=== PATIENT | male | born 1990 ===

== ENCOUNTER 2022-03-13 12:56 | Day surgery (SDC) | payer BC ==
[2022-03-11 11:36] VITALS: BMI 27.8
--- NOTE | 2022-03-12 17:18 | HP ---
HISTORY AND PHYSICAL CHIEF COMPLAINT: Nasal septal deviation. HISTORY OF PRESENT ILLNESS: This patient is a pleasant 31-year-old male who was recently seen in my office complaining of having severe difficulty breathing through his nose. The patient states that his symptoms are year-round and that he has had difficulty breathing through his nose for most of his life. He has seasonal allergies and is currently getting shots. He also takes epst-[id number] Zyrtec and a prescription for Singulair for his allergies. The patient states that it is especially difficult to sleep at night because of his breathing issues. At the time that he was seen in my office, clinical examination intranasally revealed that the patient had extreme nasal septal deviation to the left with the anterior cartilage portion of the septum subluxed off of the maxillary crest. There was hypertrophy of the maxillary crest, deformity of the perpendicular plate of the ethmoid posteriorly, and finally a vomerine spur noted on the left side posteriorly. In addition, there is severe bilateral hypertrophy of the inferior turbinates. Because of these findings, it was recommended that the patient undergo a Carver septoplasty with bilateral partial resection of the inferior turbinates under general anesthesia. PAST MEDICAL HISTORY: The patient has ALLERGIES to BIAXIN. His current medications include allergy shots, Zyrtec, Singulair and albuterol. REVIEW OF SYSTEMS: The review of systems is positive with respect to the respiratory system, in that the patient is known to be an asthmatic. The remainder of the review of systems is unremarkable. Previous surgeries include cholecystectomy and extraction of wisdom teeth. PHYSICAL EXAMINATION: This patient is a 31-year-old male who is alert, cooperative and well-oriented to time and place. HEENT EXAMINATION: The patient is normocephalic. Tympanic membranes are normal. Middle ear spaces are free of any fluid or infection. Pupils are equal, round and reactive to light and accommodation. Extraocular movements are within normal limits. Intranasal examination reveals severe nasal septal deviation with deformities as described above in the history of present illness. Examination of the oropharynx: Cranial nerves 2 through 12 and the remainder of the head and neck exam are essentially unremarkable. Chest/Cardiovascular: Both lung grady are clear to percussion and auscultation. The patient is in regular sinus rhythm. S1 and S2 are present without evidence of any murmurs, S3s or S4s. Peripheral pulses are bilaterally symmetrical. Skin is unremarkable. Musculoskeletal and neurological unremarkable. Ectal exam is deferred at this time because the patient has this done on a regular basis at his family physician's office. The remainder of the physical exam is essentially unremarkable. IMPRESSION: Severe nasal septal deviation with severe bilateral hypertrophy of the inferior turbinates. PLAN: The patient is scheduled to undergo a Carver septoplasty with bilateral partial resection of the inferior turbinates under general anesthesia. ATTENTION RNS IN THE PRE-SURGICAL AREA: I have ordered for this patient to receive 2 grams of Ancef in the pre-surgical area for surgical prophylaxis. If the pharmacy department sends a different pre-surgical prophylactic antibiotic to the pre-surgical area, please cancel that order and return it to the pharmacy department. Also make sure that the patient's account is credited appropriately. I have also ordered for this patient to receive 1000 mg of Ofirmev IV to be given once an intravenous line has been established. I have discussed the risks, benefits and alternative therapies for the above-mentioned procedure and for both sedation/analgesia as well as necessary blood product administration, if indicated, as they pertain to this patient. The patient has indicated his or her understanding and acceptance of the risks and procedures discussed. MMODL / IJN: [id number] /
[~2022-03-13 12:56] MED LIST: ACETAMINOPHEN IV (For NPO) 1,000 MG in EMPTY BAG 1 BAG IVPB ONE; ACETAMINOPHEN IV (For NPO) 1,000 MG in EMPTY BAG 1 BAG IVPB PRN; DEXAMETHASONE SOD PHOSPHATE 4 MG/ML 1 ML VIAL IV ONE; HYDROmorphone 0.5 MG/0.5 ML SYRINGE IVP PRN; LACTATED RINGERS 1,000 ML IV SCH; LIDOCAINE 1% (10MG/ML) FOR IV START INTRADERMA PRN; NALOXONE 0.4 MG/ML 1 ML VIAL IV PRN; ONDANSETRON 4 MG/2 ML VIAL IVP ONE
[2022-03-13] MEDS ORDERED: PROPOFOL 10 MG/ML 20 ML VIAL IV ONE (14:36)
[2022-03-13] MEDS ORDERED: MIDAZOLAM 2 MG/2 ML VIAL ONE (14:36)
[2022-03-13] MEDS ORDERED: LIDOCAINE 2% INJ 20 MG/ML (2 ML VIAL) ONE (14:36)
[2022-03-13] MEDS ORDERED: PHENYLEPHRINE-0.9% NACL SYG 1,000 MCG/10 ML SYRINGE ONE (14:36)
[2022-03-13] MEDS ORDERED: SUCCINYLCHOLINE CHLORIDE 100 MG/5 ML SYR IV ONE (14:36)
[2022-03-13] MEDS ORDERED: HYDROmorphone (PF) 1 MG/ML ONE ×2 (14:36)
[2022-03-13] MEDS ORDERED: fentaNYL (PF) 50 MCG/ML 2 ML AMP ONE (14:36)
[2022-03-13] MEDS ORDERED: LABETALOL 5 MG/ML VIAL MDV ONE (14:36)
[2022-03-13] MEDS ORDERED: KETAMINE 10 MG/ML 20 ML VIAL ONE (14:36)
[2022-03-13] MEDS ORDERED: OXYMETAZOLINE 0.05% NASL SPRAY 1 SPRAY BOTTLE EA NOSTRIL ONE (15:06)
[2022-03-13] MEDS ORDERED: LIDOCAINE 1%-EPI 1:100,000 20 ML VIAL SUBMUCOSAL ONE ×2 (15:15)
[2022-03-13] MEDS ORDERED: BACITRACIN ZINC 500 UNIT/GM OINT 28.4 GM TUBE TOPICAL ONE ×2 (15:54→17:59)
[2022-03-13] MEDS ORDERED: ONDANSETRON 4 MG/2 ML VIAL IVP PRN (16:30)
[2022-03-13] MEDS ORDERED: HYDROmorphone PCA 10 MG/50 ML BAG IV PRN (16:30)
[2022-03-13] MEDS ORDERED: ALPRAZolam 0.5 MG TAB PO PRN (16:30)
[2022-03-13] MEDS ORDERED: LACTATED RINGERS 1,000 ML IV ONE (17:44)
[2022-03-13] MEDS ORDERED: LORazepam 2 MG/ML INJ IV ONE (18:55)
[2022-03-13] MEDS: ACETAMINOPHEN IV (For NPO) 1,000 MG in EMPTY BAG 1 BAG IVPB SCH (21:13)
[2022-03-13] MEDS ORDERED: TEMAZEPAM 15 MG CAP PO PRN (22:00)
[2022-03-13] MEDS: LACTATED RINGERS 1,000 ML IV SCH (22:58)
[2022-03-14] MEDS: LACTATED RINGERS 1,000 ML IV SCH ×3 (01:13→14:05)
[2022-03-14] MEDS: ACETAMINOPHEN IV (For NPO) 1,000 MG in EMPTY BAG 1 BAG IVPB SCH ×3 (02:51→16:25)
[2022-03-14 15:14] VITALS: BP 145/92; PULSE 101; RESP 18; TEMP 98.4
--- NOTE | 2022-03-16 16:32 | OP ---
OPERATIVE REPORT DATE OF SURGERY: 03/13/2022 PREOPERATIVE DIAGNOSIS: Severe nasal septal deviation with severe bilateral hypertrophy of the inferior turbinates. POSTOPERATIVE DIAGNOSIS: Severe nasal septal deviation with severe bilateral hypertrophy of the inferior turbinates. ANESTHESIA: General. OPERATIVE PROCEDURE: Aries septoplasty with bilateral partial resection of the inferior turbinates. OPERATING SURGEON: Dr. Hernandez. COMPLICATIONS: None. ESTIMATED BLOOD LOSS: Less than 50 mL. TOTAL OPERATING TIME: Start 3:30 p.m. Finish 6:30 p.m. Total operating time approximately 3 hours. OPERATIVE REPORT: The patient was placed on the operating table in supine position, and after uneventful induction and endotracheal intubation, satisfactory general anesthesia was obtained. Next, the patient was draped in the usual and customary fashion. Following this, both nasal chambers were packed with cottonoids saturated with Afrin nasal spray. These were left in place for 10 minutes to achieve maximum vasoconstriction of the inferior turbinates. Next, the hairs in the right nasal vestibule were trimmed in the usual and customary fashion. Following this, the Columellar clamp was applied to the membrane portion of the nasal septum and pulled anteriorly. This area was infiltrated with approximately 2 to 3 mL of 1% xylocaine with epinephrine 1:100,000 with an additional milliliter infiltrated along the nasal spine. Following this, the so-called aysha- transfixation incision was made on the right side of the membrane portion of the septum. The incision was made through the skin only, beginning at the dome of the nose and worked to the floor of the nose using a #15 scalpel. The incision was completed using a pair of sharp-angled Teddy scissors to dissect the soft tissue away from the caudal portion of the cartilaginous septum. The edge of the cartilaginous portion of the septum was identified and was sharply incised using the curved sharp scissors and a #15 scalpel. The superior anterior tunnel was started using a freer in a subperichondrial plane. This was done by using short motions to elevate the perichondrium and mucous membrane off of the cartilage. The dissection was carried out from superior to inferior and anterior to posterior. The cottonoids were removed, and immediately it was noted that the patient had a severe C-shaped deformity with the septum not only subluxed off of the maxillary crest, but also it was curved on itself, almost totally blocking the left nasal airway. The dissection was carried out from anterior to posterior. At one point the junction of the perpendicular plate of the ethmoid and the cartilage septum was reached. At that point, the blunt end of the freer was used to elevate the mucoperiosteum off of the ethmoid bone in a sweeping fashion from superior to inferior down to the floor of the nose. Next, because of the severe curving in the septum, an inferior tunnel had to be created. This was started at the nasal spine using the sharp end of the freer and working closely along the maxillary crest from anterior to posterior. The superior and inferior tonsils were subsequently carefully joined with only a few minor tears noted. Next, the junction of the perpendicular plate of the ethmoid and cartilage portion of the septum was sharply incised and the dissection was carried out on the right side of the perpendicular plate of the ethmoid using the blunt end of the freer in a sweeping fashion from superior to inferior. This dissection was carried back to the level of the rostrum. Next, a right inferior tunnel was created using the freer in a similar fashion as the left tunnel had been created. This was carried from anterior to posterior. Following this, the septum was from the maxillary crest using the Vilas knife to incise Sharpey's fibers. A small inferior strut was removed from the cartilage portion of the septum. Care was taken to leave at least a centimeter of the anterior portion of the cartilage septum for support. Having freed up the septum from the maxillary crest, this allowed it to be moved to the right. The cartilage portion of the septum was then scored using a #15 scalpel blade to break the bend of the curvature. Next, the central portion of the perpendicular plate of the ethmoid which was deformed was resected using a pair of double-acting rongeurs. Using a chisel and a mallet, a Vomer ring spur was removed. Next the maxillary crest was trimmed using a chisel and mallet. It is to be noted that the maxillary crest was not only hypertrophied but was also deformed. All of these deformities made the dissection quite slow and tedious. Following this, inspection revealed that the septum now was able to swing back towards the midline without difficulty. Attention was then directed toward the inferior turbinates. Beginning on the right side, the right inferior turbinate was clamped using a medium Sara clamp for a period of 7 minutes. After removing the clamp, the portion of the turbinate to be resected was delineated by the crushed area. The resection was done using a pair of turbinectomy scissors. However, it was noted that the patient had severe hypertrophy of the bony turbinate bilaterally. This also impinged on the airway bilaterally. Hemostasis was obtained using suction cautery. The same procedure was carried out on the left side using the Sara clamp to clamp the left inferior turbinate. After 7 minutes, the clamp was removed and the crushed portion of the turbinate was resected using the turbinectomy scissors in the usual fashion. Again, it is to be noted that the inferior turbinate bone was severely hypertrophied. Inspection revealed that the patient had a significant improvement in his airway, although the deformity of the maxillary crest still interfered somewhat with the airway. However, it was decided not to do any further resection out of concern about causing problems. This patient obviously has some anatomical deformity/variations which are more related to his genetics. Next the aysha-transfixation incision was closed using a 4-0 chromic suture in a running fashion. A pair of 8 cm Xomed silastic nasal splints were placed in the right and left nasal chambers and seated on the floor in the usual fashion. These were sewn together using a 4-0 silk suture on a straight Román needle. Following this, a pair of 8 cm Merocel nasal tampons was inserted in the right and left nasal chambers lateral to the silastic splints in the usual fashion. It is to be noted that prior to insertion of the nasal splints and the tampons, the nose was generously dusted with Alok thrombin powder for hemostasis. A mustache dressing was applied. At this point the procedure was terminated. This procedure took approximately 3 hours, which is significantly longer than the usual 90 minutes that this procedure normally takes. The extended operating time was because of the unusual anatomical variations that were found and the severe septal and turbinate deformities that were encountered. Estimated blood loss was less than 50 mL. At this point the procedure was terminated. There were no intraoperative complications. The patient tolerated the procedure well and was returned to the recovery room in satisfactory condition. MMNINA / IJN: [id number] / [id number]
== END 2022-03-14 16:15 | disposition home or self-care (01) ==
LOC: OR 12:56 → 4SSUR 18:11 → OR 03-14 16:15
PROVIDERS: ATTEND Otolaryngology
DX: J34.2 Deviated nasal septum (principal); J34.3 Hypertrophy of nasal turbinates; Z79.899 Other long term (current) drug therapy; Z88.1 Allergy status to other antibiotic agents; J45.909 Unspecified asthma, uncomplicated; Z90.49 Acquired absence of other specified parts of digestive tract; Z79.891 Long term (current) use of opiate analgesic
CPT/HCPCS: 30520; 30140; J2250; J2060; J1100; J0690 ×2; J2405 ×2; J3010; J1170 ×2; J0131 ×2; J2370; J0330; J2704; J2001